=== PATIENT | male | born 1955 | race Caucasian/White ===

== ENCOUNTER 2017-10-25 18:22 | Inpatient (IN) | payer OTHER ==
[2017-10-25] VITALS (9 sets, daily range): BP systolic 102–164; BP diastolic 63–91; PULSE 102–145; RESP 20–36; TEMP 98.7; O2SAT 93–100
[~2017-10-25] VITALS: Ht 177.8 cm; Wt 68.3 kg
[~2017-10-25 18:22] MED LIST: CHLO5CAP3
[2017-10-25] MEDS ORDERED: SODIUM CHLORIDE 0.9% FLUSH 10 ML FLUSH IVF PRN (18:30)
[2017-10-25] MEDS ORDERED: methylPREDNISolone SOD SUCC 125 MG/2 ML VIAL IV PUSH ONE (18:30)
[2017-10-25] MEDS: RESP: ALBUTEROL 2.5 MG/IPRATROPIUM 0.5 MG NEB (SCH) INH ×4 (18:45→22:55)
[2017-10-25] MEDS ORDERED: METOPROLOL TARTRATE 5 MG/5 ML VIAL IV PUSH ONE ×2 (19:00→19:30)
--- NOTE | 2017-10-25 19:04 | RADRPT ---
EXAM DATE: 10/25/2017 6:51 PM EDT AGE/SEX: 62 years / Male INDICATIONS: Short of breath. CLINICAL DATA: This is the patient's initial encounter. Patient reports that signs and symptoms have been present for 1 day and indicates a pain score of 0/10. MEDICAL/SURGICAL HISTORY: Carcinoma, esophageal. . Infusaport. COMPARISON: No prior [place] exams available for comparison. FINDINGS: A single AP view of the chest demonstrates the lungs to be symmetrically aerated without evidence of mass, infiltrate or effusion. There is mild prominence of the interstitial markings in the lower aliya gs without focal infiltrates. The cardiomediastinal contours are unremarkable. Osseous structures ar e intact. Minpsd-y-Hfix catheter tip in the distal superior vena cava. CONCLUSION: 1. Mild bilateral lower lung interstitial prominence without focal infiltrate. 2. [id number] in good position. Electronically signed by: David Fuentes MD 10/25/2017 7:02 PM EDT
--- NOTE | 2017-10-25 19:20 | PD ---
Physical Exam Time Seen by Provider: 19:19 Narrative Accepted in transfer of care from Dr. Baumann GENERAL: Thin ill-appearing male on BiPAP speaking in complete sentences. SKIN: Warm and dry. HEAD: Normocephalic. EYES: No scleral icterus. No injection or drainage. NECK: Supple, trachea midline. No JVD or lymphadenopathy. CARDIOVASCULAR: Increased regular rate and rhythm without murmurs, gallops, or rubs. RESPIRATORY: Breath sounds equal bilaterally. No accessory muscle use. GASTROINTESTINAL: Abdomen soft, non-tender, nondistended. PEG tube in place. MUSCULOSKELETAL: No cyanosis, or edema. Data Data Last Documented VS Vital Signs Date Time Temp Pulse Resp B/P (MAP) Pulse Ox O2 Delivery O2 Flow Rate FiO2 10/25/17 21:22 96 BiPAP 10/25/17 21:15 50 10/25/17 20:35 4.00 10/25/17 20:30 104 20 126/72 (90) 10/25/17 18:25 98.7 Orders Orders Complete Blood Count With Diff (10/25/17 18:30) Comprehensive Metabolic Panel (10/25/17 18:30) B-Type Natriuretic Peptide (10/25/17 18:30) Act Partial Throm Time (Ptt) (10/25/17 18:30) Prothrombin Time / Inr (Pt) (10/25/17 18:30) Troponin I (10/25/17 18:30) Iv Access Insert/Monitor (10/25/17 18:30) Ecg Monitoring (10/25/17 18:30) Oximetry (10/25/17 18:30) Oxygen Administration (10/25/17 18:30) Chest, Single Ap (10/25/17 18:30) Sodium Chloride 0.9% Flush (Ns Flush) (10/25/17 18:30) Methylprednisolone So Succ Inj (Solumedr (10/25/17 18:30) Albuterol-Ipratropium Neb (Duoneb Neb) (10/25/17 18:30) Metoprolol Tartrate Inj (Lopressor Inj) (10/25/17 19:00) Adenosine Inj (Adenocard Inj) (10/25/17 19:30) Adenosine Inj (Adenocard Inj) (10/25/17 19:45) Blood Culture (10/25/17 19:47) Lactic Acid Sepsis Protocol (10/25/17 19:47) Cefepime Inj (Maxipime Inj) (10/25/17 20:00) Resp Bipap / Cpap Non Invas Vt (10/25/17 ) Ct Pulmonary Angiogram (10/25/17 ) Iohexol 350 Inj (Omnipaque 350 Inj) (10/25/17 21:06) Electrocardiogram (10/25/17 18:34) Albuterol-Ipratropium Neb (Duoneb Neb) (10/25/17 22:00) Admit Order (Ed Use Only) (10/25/17 ) Clinical Documentation Spec / Telemetry ERAN.Q8H (10/25/17 21:47) Diet Npo (10/26/17 Breakfast) Activity Bed Rest (10/25/17 21:47) Notify Dr: Other (10/25/17 21:47) Code Status (10/25/17 21:47) Labs Laboratory Tests Test 10/25/17 19:05 10/25/17 19:55 White Blood Count 19.3 TH/MM3 Red Blood Count 3.41 MIL/MM3 Hemoglobin 10.7 GM/DL Hematocrit 33.0 % Mean Corpuscular Volume 96.8 FL Mean Corpuscular Hemoglobin 31.2 PG Mean Corpuscular Hemoglobin Concent 32.2 % Red Cell Distribution Width 14.3 % Platelet Count 570 TH/MM3 Mean Platelet Volume 9.0 FL Neutrophils (%) (Auto) 77.7 % Lymphocytes (%) (Auto) 12.4 % Monocytes (%) (Auto) 8.2 % Eosinophils (%) (Auto) 1.0 % Basophils (%) (Auto) 0.7 % Neutrophils # (Auto) 15.0 TH/MM3 Lymphocytes # (Auto) 2.4 TH/MM3 Monocytes # (Auto) 1.6 TH/MM3 Eosinophils # (Auto) 0.2 TH/MM3 Basophils # (Auto) 0.1 TH/MM3 CBC Comment DIFF FINAL Differential Comment Prothrombin Time 10.9 SEC Prothromb Time International Ratio 1.1 RATIO Activated Partial Thromboplast Time 30.7 SEC Blood Urea Nitrogen 26 MG/DL Creatinine 1.13 MG/DL Random Glucose 118 MG/DL Total Protein 9.7 GM/DL Albumin 3.0 GM/DL Calcium Level 10.9 MG/DL Alkaline Phosphatase 129 U/L Aspartate Amino Transf (AST/SGOT) 20 U/L Alanine Aminotransferase (ALT/SGPT) 23 U/L Total Bilirubin 0.3 MG/DL Sodium Level 136 MEQ/L Potassium Level 4.5 MEQ/L Chloride Level 100 MEQ/L Carbon Dioxide Level 26.9 MEQ/L Anion Gap 9 MEQ/L Estimat Glomerular Filtration Rate 66 ML/MIN Troponin I LESS THAN 0.02 NG/ML B-Type Natriuretic Peptide 86 PG/ML Lactic Acid Level 1.4 mmol/L [facility] Medical Record Reviewed: Yes Supervised Visit with AJIT: No Interpretation(s) Last Impressions Chest X-Ray 10/25/17 1830 Signed Impressions: CONCLUSION: 1. Mild bilateral lower lung interstitial prominence without focal infiltrate. 2. Upjqeb-g-Qayi in good position. CT Angiography 10/25/17 0000 Signed Impressions: CONCLUSION: 1. No evidence of pulmonary embolism. 2. Large ill-defined soft tissue mass in the region of the esophagus with portia cent subcarinal adenopathy. This is of concern for esophageal carcinoma. 3. Extensive reticulonodular opacities in both lung bases which may be infecti ous or inflammatory. Metastatic disease is less likely but is difficult to excl ude. CBC & BMP Diagram 10/25/17 19:05 Total Protein 9.7 H, Albumin 3.0 L, Calcium Level 10.9 H, Alkaline Phosphatase 129 H, Aspartate Amino Transf (AST/SGOT) 20, Alanine Aminotransferase (ALT/SGPT ) 23, Total Bilirubin 0.3 Vital Signs Date Time Temp Pulse Resp B/P (MAP) Pulse Ox O2 Delivery O2 Flow Rate FiO2 10/25/17 21:22 96 BiPAP 10/25/17 21:15 93 50 10/25/17 20:45 91 BiPAP 10/25/17 20:35 95 Nasal Cannula 4.00 10/25/17 20:30 104 20 126/72 (90) 98 BiPAP 10/25/17 20:27 100 50 10/25/17 20:00 102 20 104/74 (84) 98 BiPAP 10/25/17 19:31 102 24 102/63 (76) 100 BiPAP 10/25/17 18:30 96 BiPAP 10/25/17 18:30 36 96 BiPAP 10/25/17 18:25 98.7 145 36 164/91 (115) 97 10/25/17 18:23 95 40 Differential Diagnosis Accepted in transfer of care from Dr. Baumann; please refer to her dictation Narrative Course Accepted in transfer of care from Dr. Baumann; for follow up of pending diagnostics and for admission; 62-year-old hospice patient with esophageal cancer presented in acute respiratory distress and tachycardia was noted by EMS to have rales receive Lasix 70 mg IV prior to arrival to the emergency department and Solu-Medrol with also administered upon arrival to the emergency department as well as Adenocard was administered for tachycardia 6 mg IV with repeat dose of 6 mg IV and due to persistent tachycardia patient received a one- time dose of metoprolol 5 mg IV with good rate control. Lab values are pending. Patient is a hospice patient but does request should he have further respiratory deterioration to undergo intubation. Patient not tolerating BiPAP well requesting to have device removed has been fairly stable on current setting taper down tolerating well transition to nasal cannula for short period with desaturation 85% on 4 L/min nasal cannula replaced on BiPAP with O2 sats increasing to 96%. Patient aware of plan for admission; patient has rescinded his DNR and does agree to intubation if necessary for ongoing management of respiratory status. CT pulmonary angiogram is negative for PE does show periesophageal soft tissue mass and subcarinal soft tissue changes in lymphadenopathy consistent with malignancy; reticular nodular densities bibasilarly concerning for infectious versus inflammatory etiology also to consider malignancy related. Hospice nurse at bedside and reports the patient has rescinded his DO NOT RESUSCITATE; patient states that should he need intubation for respiratory related issues he wants to be intubated and he wants to be a full code. Patient's case discussed with on-call medical recruiter Dr. Baker who is except the patient to his service Sepsis Criteria SIRS Criteria (2 or more): Heart rate over 90, RR > 20 or PaCO2 < 32, WBC > 38762, < 4000 or > 10% bands Physician Communication Physician Communication call placed to medical recruiter --discussed with Dr Baker --admit to ICU Diagnosis Primary Impression: Respiratory distress Additional Impressions: Pulmonary vascular congestion Esophageal carcinoma Admitting Information Admitting Physician Requests: Admit Suzanne Presley MD October 25, 2017 19:20
[2017-10-25] MEDS ORDERED: PRED20 PEG (19:21)
[2017-10-25] MEDS ORDERED: DEXT1LIQ15 PEG (19:21)
[2017-10-25] MEDS ORDERED: IPRASOL INH (19:21)
[2017-10-25] MEDS ORDERED: ACET325C PEG (19:21)
[2017-10-25] MEDS ORDERED: LORA1TAB12 PEG (19:21)
[2017-10-25] MEDS ORDERED: AMOX875T2 PEG (19:21)
[2017-10-25] MEDS ORDERED: SENN8.6T81 PEG (19:21)
[2017-10-25] MEDS ORDERED: MORP10S2 PO (19:29)
[2017-10-25] MEDS ORDERED: ADENOSINE IV SOLN 3 MG/ML 2 ML VIAL IV PUSH ONE ×2 (19:30→19:45)
--- NOTE | 2017-10-25 19:33 | PD ---
HPI Chief Complaint: Respiratory Distress Time Seen by Provider: 18:25 Travel History International Travel<30 days: No Contact w/Intl Traveler<30days: No Traveled to known affect area: No History of Present Illness HPI This is a 72-year-old male who presents to the emergency department with shortness of breath that got much worse today, constant, severe. He is unable to provide any history because he is in severe respiratory distress. A hospice nurse was on scene. Evidently the patient is on hospice for esophageal cancer. He received 30 mg of morphine earlier today. I was able to discuss with the patient that he would want mechanical ventilation if he were to deteriorate further. PFSH Past Medical History Cancer: Yes (ESOPHAGEAL) Seizures: Yes Social History Alcohol Use: Yes (OCC) Tobacco Use: No Substance Use: No Allergies-Medications (Allergen,Severity, Reaction): Coded Allergies: No Known Allergies (Unverified , 10/25/17) Reported Meds & Prescriptions Reported Meds & Active Scripts Active Reported Morphine Liq (Morphine Sulfate) 20 Mg/5 Ml Liq 15-20 Mg PO Q3HR Prednisone 20 Mg Tab 30 Mg PEG DAILY Lorazepam 1 Mg Tab 1 Mg PEG Q2HR PRN Lorazepam 1 Mg Tab 1 Mg PEG Q2HR PRN Amoxicillin-Clavulanate 875-125 mg Tab 875 Mg PEG BID not for use in CrCl <30 mL/minute Duoneb (Ipratropium-Albuterol Neb) 0.5-2.5 Mg/3 Ml Neb 1 Nebule INH Q4HR NEB Sennosides 8.6 Mg Tab 8.6 Mg PEG BID Delsym Cough Chest Congestion (Dextromethorphan-Guaifenesin Liq) 5-100 Mg/5 Ml Liq 10 Ml PEG Q4H PRN Acetaminophen 325 Mg Capsule 325 Mg PEG Q4HR Review of Systems ROS Limitations: Clinical Condition Physical Exam Narrative GENERAL: Cachectic, anxious in severe respiratory distress SKIN: Focused skin assessment warm and dry. HEAD: Atraumatic. Normocephalic. EYES: Pupils equal and round. No injection or drainage. ENT: Moist mucous membranes NECK: Trachea midline. CARDIOVASCULAR: Regular rate and rhythm. No murmur appreciated. RESPIRATORY: Tachypneic, using accessory muscles and tripoding, diffuse rales GASTROINTESTINAL: Abdomen soft, non-tender, nondistended. MUSCULOSKELETAL: No obvious deformities. NEUROLOGICAL: Awake and alert. No obvious cranial nerve deficits. Moving all extremities. PSYCHIATRIC: Appropriate mood and affect; insight and judgment normal. Data Data Last Documented VS Vital Signs Date Time Temp Pulse Resp B/P (MAP) Pulse Ox O2 Delivery O2 Flow Rate FiO2 10/25/17 19:31 102 24 102/63 (76) 100 BiPAP 10/25/17 18:25 98.7 10/25/17 18:23 40 Orders Orders Complete Blood Count With Diff (10/25/17 18:30) Comprehensive Metabolic Panel (10/25/17 18:30) B-Type Natriuretic Peptide (10/25/17 18:30) Act Partial Throm Time (Ptt) (10/25/17 18:30) Prothrombin Time / Inr (Pt) (10/25/17 18:30) Troponin I (10/25/17 18:30) Iv Access Insert/Monitor (10/25/17 18:30) Ecg Monitoring (10/25/17 18:30) Oximetry (10/25/17 18:30) Oxygen Administration (10/25/17 18:30) Chest, Single Ap (10/25/17 18:30) Sodium Chloride 0.9% Flush (Ns Flush) (10/25/17 18:30) Methylprednisolone So Succ Inj (Solumedr (10/25/17 18:30) Albuterol-Ipratropium Neb (Duoneb Neb) (10/25/17 18:30) Metoprolol Tartrate Inj (Lopressor Inj) (10/25/17 19:00) Adenosine Inj (Adenocard Inj) (10/25/17 19:30) Adenosine Inj (Adenocard Inj) (10/25/17 19:45) Labs Laboratory Tests Test 10/25/17 19:05 Prothrombin Time 10.9 SEC Prothromb Time International Ratio 1.1 RATIO Activated Partial Thromboplast Time 30.7 SEC MDM Medical Decision Making Medical Screen Exam Complete: Yes Emergency Medical Condition: Yes Interpretation(s) Tachycardia, hypertensive, tachypneic Differential Diagnosis Pneumonia, pulmonary embolism, pleural effusion, congestive heart failure, COPD exacerbation Narrative Course This is a 62-year-old male who presents to the emergency department with severe respiratory distress. He is on hospice for esophageal cancer, but had a crisis today. He was placed on a monitor and an IV was established. He was placed on BiPAP by [facility] and this was continued in the emergency department. He received 70 of Lasix from [facility]. Patient had rales in his physical exam is consistent with pulmonary edema. He was in a sustained narrow complex tachycardia at a rate of 140. He was given adenosine twice but did not improve. He was given 5 mg metoprolol and his heart rate slowed to a rate of 100. Patient appeared significantly improved on reassessment. He was signed out to Dr. Presley pending diagnostics and should be admitted for close monitoring. Critical Care Narrative Aggregate critical care time was 45 minutes. Time to perform other separately billable procedures was not included in the critical care time. My time did not include minutes spent treating any other patients simultaneously or on activities that did not directly contribute to the patient's treatment. The services I provided to this patient were to treat and/or prevent clinically significant deterioration that could result in: Disability, I provided critical care services requiring my management, as noted below: Chart data review, documentation time, medication orders and management, vital sign assessments/reviewing monitor data, ordering and reviewing lab tests, ordering and interpreting/reviewing x-rays and diagnostic studies, care of the patient and discussion of the patient with the admitting physicians. Mckayla Baumann MD October 25, 2017 19:33
[2017-10-25 19:34] LABS: INTERNATIONAL NORMALIZED RATIO 1.1 RATIO; PROTHROMBIN TIME - PATIENT 10.9 SEC (9.8-11.6)
[2017-10-25 19:40] LABS: BASOPHIL # 0.1 TH/MM3 (0-0.2); BASOPHIL % 0.7 % (0.0-2.0); EOSINOPHIL # 0.2 TH/MM3 (0-0.4); HEMOGLOBIN 10.7 GM/DL (13.0-17.0); LYMPH % 12.4 % (9.0-44.0); LYMPHOCYTE # 2.4 TH/MM3 (1.0-4.8); MEAN CELL VOLUME 96.8 FL (80.0-100.0); MEAN CORPUSCULAR HEMOGLOBIN 31.2 PG (27.0-34.0); MEAN CORPUSCULAR HGB CONC 32.2 % (32.0-36.0); MONO % 8.2 % (0.0-8.0); MONOCYTE # 1.6 TH/MM3 (0-0.9); NEUT % 77.7 % (16.0-70.0); PLATELET COUNT 570 TH/MM3 (150-450); RED BLOOD COUNT 3.41 MIL/MM3 (4.50-5.90); RED CELL DISTRIBUTION WIDTH 14.3 % (11.6-17.2); WHITE BLOOD COUNT 19.3 TH/MM3 (4.0-11.0)
[2017-10-25 19:50] LABS: AST (GOT) 20 U/L (15-37); BICARBONATE 26.9 MEQ/L (21.0-32.0); BLOOD UREA NITROGEN 26 MG/DL (7-18); CALCIUM 10.9 MG/DL (8.5-10.1); CHLORIDE 100 MEQ/L (98-107); CREATININE 1.13 MG/DL (0.60-1.30); GLOMERULAR FILTRATION RATE 66 ML/MIN (>89); GLUCOSE,RANDOM 118 MG/DL (74-106); SODIUM (NA) 136 MEQ/L (136-145)
[2017-10-25 19:51] LABS: ALT (GPT) 23 U/L (12-78)
[2017-10-25 19:55] LABS: ALKALINE PHOSPHATASE 129 U/L (45-117); TOTAL BILIRUBIN ADULT 0.3 MG/DL (0.2-1.0); TOTAL PROTEIN 9.7 GM/DL (6.4-8.2); TROPONIN I LESS THAN 0.02 NG/ML (0.02-0.05)
[2017-10-25] MEDS ORDERED: CEFEPIME INJ 2,000 MG in SODIUM CHLORIDE 0.9% INJ 100 ML IV ONE (20:00)
[2017-10-25] MEDS ORDERED: IOHEXOL 350 MG/ML 10 ML VIAL (for RAD DIAG) IVCONTRAST ONE (21:06)
--- NOTE | 2017-10-25 21:16 | RADRPT ---
EXAM DATE: 10/25/2017 9:07 PM EDT AGE/SEX: 62 years / Male INDICATIONS: Shortness of breath CLINICAL DATA: This is the patient's initial encounter. Patient reports that signs and symptoms have been present for 1 day and indicates a pain score of 0/10. MEDICAL/SURGICAL HISTORY: Carcinoma, esophageal. None. RADIATION DOSE: 7.21 CTDI (mGy) COMPARISON: No prior [place] exams available for comparison. TECHNIQUE: Volumetric scanning was performed using a multi-row detector CT scanner during bolus infu michael of 75 ml Omnipaque 350 (iohexol) nonionic water-soluble contrast as a single exam dose. The clara a was post processed with a variety of visualization algorithms including full volume maximum intensi ty projection and sliding thin slab reformation. Using automated exposure control and adjustment of the mA and/or kV according to patient size, radiation dose was kept as low as reasonably achievable t o obtain optimal diagnostic quality images. FINDINGS: Pulmonary Arteries: No filling defects are seen in the pulmonary arteries out to the subsegmental ve ssels. The left and right pulmonary arteries are normal in diameter. Lung: Diffuse reticulonodular opacities are present in both lung bases. Involves the lower lobes as well as the right middle lobe and lingula. There are multiple small scattered nodules in these region s measuring from less than 1 mm up to 3 to 4 mm in size. There is no focal consolidation. Effusion: None. Mediastinum: There is a large, ill-defined soft tissue mass centered in the region of the esophagus measuring up to 4.4 x 4.2 cm in diameter. The esophagus is dilated above this level and there is an a ir-fluid level. There is mass effect on the posterior trachea. There is adjacent subcarinal adenopath y with the largest paulie area measuring up to 2.6 cm. Other: The axilla is unremarkable. CONCLUSION: 1. No evidence of pulmonary embolism. 2. Large ill-defined soft tissue mass in the region of the esophagus with adjacent subcarinal adenop athy. This is of concern for esophageal carcinoma. 3. Extensive reticulonodular opacities in both lung bases which may be infectious or inflammatory. M etastatic disease is less likely but is difficult to exclude. Electronically signed by: Daquan Wood MD 10/25/2017 9:14 PM EDT
[2017-10-25] MEDS ORDERED: RESP: ALBUTEROL 2.5 MG/IPRATROPIUM 0.5 MG NEB (SCH) NEB ONE (22:00)
--- NOTE | 2017-10-25 22:21 | HHI.HP ---
HPI Service Critical Care Medicine Primary Care Physician Unknown Admission Diagnosis acute resp distress; pulmonary vasc congestion; esophageal CA Diagnosis: Travel History International Travel<30 Days: No Contact w/Intl Traveler <30 Da: No Traveled to Known Affected Are: No History of Present Illness 72-year-old male who presents with shortness of breath that got much worse today , constant, severe. He is unable to provide any history because he is in severe respiratory distress. A hospice nurse was on scene. Evidently the patient is on hospice for esophageal cancer. He received 30 mg of morphine earlier today. The CODE STATUS was discussed with the patient by ED attending, the patient rescinded his DNR orders as he would want mechanical ventilation if he were to deteriorate further. He was placed on the BiPAP with significant improvement in his oxygenation. Review of Systems ROS Unable to obtain patient in respiratory distress on BiPAP Past Family Social History Allergies: Coded Allergies: No Known Allergies (Unverified , 10/25/17) Past Medical History Cancer: Yes (ESOPHAGEAL) Seizures: Yes Past Surgical History Unable to obtain Reported Medications Reported Meds & Active Scripts Active Reported Morphine Liq (Morphine Sulfate) 20 Mg/5 Ml Liq 15-20 Mg PO Q3HR Prednisone 20 Mg Tab 30 Mg PEG DAILY Lorazepam 1 Mg Tab 1 Mg PEG Q2HR PRN Lorazepam 1 Mg Tab 1 Mg PEG Q2HR PRN Amoxicillin-Clavulanate 875-125 mg Tab 875 Mg PEG BID not for use in CrCl <30 mL/minute Duoneb (Ipratropium-Albuterol Neb) 0.5-2.5 Mg/3 Ml Neb 1 Nebule INH Q4HR NEB Sennosides 8.6 Mg Tab 8.6 Mg PEG BID Delsym Cough Chest Congestion (Dextromethorphan-Guaifenesin Liq) 5-100 Mg/5 Ml Liq 10 Ml PEG Q4H PRN Acetaminophen 325 Mg Capsule 325 Mg PEG Q4HR Active Ordered Medications Current Medications Medications (Trade) Dose Ordered Sig/Nadia Route PRN Reason Start Time Stop Time Status Last Admin Dose Admin Lorazepam (Ativan) 1 mg Q2HR PRN PEG ANXIETY 10/25/17 22:30 Lorazepam (Ativan) 1 mg Q2HR PRN PEG SEVERE ANXIETY OR AGITATION 10/25/17 22:30 Prednisone (Deltasone) 30 mg DAILY PEG 10/26/17 09:00 Morphine Sulfate (Roxanol Liq) 15 mg Q3HR PO 10/25/17 23:00 10/26/17 01:00 Miscellaneous (Pill Splitter) 1 ea UNSCH PRN OTHER SEE LABEL COMMENTS 10/25/17 22:30 Sodium Chloride 1,000 ml @ 124 mls/hr Q8H4M IV 10/25/17 22:23 10/25/17 23:18 Sodium Chloride (NS Flush) 2 ml UNSCH PRN IV FLUSH FLUSH AFTER USING IV ACCESS 10/25/17 22:30 Sodium Chloride (NS Flush) 2 ml BID IV FLUSH 10/26/17 09:00 Acetaminophen (Tylenol) 650 mg Q6H PRN PO PAIN 1-10 AND/OR FEVER >101F 10/25/17 22:30 Hydromorphone HCl (Dilaudid Pf Inj) 1 mg Q4H PRN IV PUSH PAIN SCALE 6 TO 10 10/25/17 22:30 Famotidine (Pepcid Inj) 20 mg Q12HR IV PUSH 10/26/17 09:00 Ondansetron HCl (Zofran Odt) 4 mg Q6H PRN PO NAUSEA OR VOMITING 10/25/17 22:30 Temazepam (Restoril) 15 mg HS PRN PO INSOMNIA 10/25/17 22:30 Albuterol/ Ipratropium (Duoneb Neb) 1 ampule Q4HR NEB INH 10/26/17 00:00 10/26/17 04:03 Albuterol/ Ipratropium (Duoneb Neb) 1 ampule Q2HR NEB PRN INH WHEEZING 10/25/17 22:30 Enoxaparin Sodium (Lovenox Inj) 40 mg Q24H SQ 10/25/17 23:00 10/25/17 23:18 Miscellaneous Information [place] [place] [facility] [place] 1 [id number] XX 10/25/17 22:30 Chlorhexidine Gluconate (Chlorhexidine 2% Cloth) 3 pack Taper DAILY@04 TOP 10/26/17 04:00 10/22/18 03:59 10/26/17 01:01 Chlorhexidine Gluconate (Chlorhexidine 2% Cloth) 3 pack UNSCH PRN TOP HYGIENIC CARE 10/25/17 22:30 Senna/Docusate Sodium (Bria-Colace) 1 tab BID PO 10/26/17 09:00 Magnesium Hydroxide (Milk Of Magnesia Liq) 30 ml Q12H PRN PO Mild constipation 10/25/17 22:30 Sennosides (Senokot) 17.2 mg Q12H PRN PO Moderate constipation 10/25/17 22:30 Bisacodyl (Dulcolax Supp) 10 mg DAILY PRN RECTAL SEVERE CONSITIPATION 10/25/17 22:30 Lactulose (Lactulose Liq) 30 ml DAILY PRN PO SEVERE CONSITIPATION 10/25/17 22:30 Piperacillin Sod/ Tazobactam Sod 100 ml @ 200 mls/hr Q6H IV 10/25/17 23:00 10/26/17 05:09 Azithromycin 500 mg/Sodium Chloride 250 ml @ 250 mls/hr Q24H IV 10/26/17 00:00 10/26/17 01:01 Pharmacy Profile Note 0 ml @ 0 mls/hr UNSCH OTHER 10/25/17 22:30 Guaifenesin/ Dextromethorphan (Robitussin Dm 200-20 Mg/10 ml Liq) 10 ml Q4H PRN PEG CHEST CONGESTION AND/OR COUGH 10/25/17 23:00 Family History Unable to obtain Social History Alcohol Use: Yes (OCC) Tobacco Use: No Substance Use: No Physical Exam Vital Signs Vital Signs Date Time Temp Pulse Resp B/P (MAP) Pulse Ox O2 Delivery O2 Flow Rate FiO2 10/25/17 21:22 96 BiPAP 10/25/17 21:15 93 50 10/25/17 20:45 91 BiPAP 10/25/17 20:35 95 Nasal Cannula 4.00 10/25/17 20:30 104 20 126/72 (90) 98 BiPAP 10/25/17 20:27 100 50 10/25/17 20:00 102 20 104/74 (84) 98 BiPAP 10/25/17 19:31 102 24 102/63 (76) 100 BiPAP 10/25/17 18:30 96 BiPAP 10/25/17 18:30 36 96 BiPAP 10/25/17 18:25 98.7 145 36 164/91 (115) 97 10/25/17 18:23 95 40 Physical Exam GENERAL: Cachectic, anxious in severe respiratory distress on facemask BiPAP SKIN: Focused skin assessment warm and dry. HEAD: Atraumatic. Normocephalic. EYES: Pupils equal and round. No injection or drainage. ENT: Moist mucous membranes NECK: Trachea midline. CARDIOVASCULAR: Regular rate and rhythm. No murmur appreciated. RESPIRATORY: Tachypneic, using accessory muscles and tripoding, diffuse rales GASTROINTESTINAL: Abdomen soft, non-tender, nondistended. MUSCULOSKELETAL: No obvious deformities. NEUROLOGICAL: Awake and alert. No obvious cranial nerve deficits. Moving all extremities. Laboratory Laboratory Tests Test 10/25/17 19:05 10/25/17 19:55 White Blood Count 19.3 Red Blood Count 3.41 Hemoglobin 10.7 Hematocrit 33.0 Mean Corpuscular Volume 96.8 Mean Corpuscular Hemoglobin 31.2 Mean Corpuscular Hemoglobin Concent 32.2 Red Cell Distribution Width 14.3 Platelet Count 570 Mean Platelet Volume 9.0 Neutrophils (%) (Auto) 77.7 Lymphocytes (%) (Auto) 12.4 Monocytes (%) (Auto) 8.2 Eosinophils (%) (Auto) 1.0 Basophils (%) (Auto) 0.7 Neutrophils # (Auto) 15.0 Lymphocytes # (Auto) 2.4 Monocytes # (Auto) 1.6 Eosinophils # (Auto) 0.2 Basophils # (Auto) 0.1 CBC Comment DIFF FINAL Differential Comment Prothrombin Time 10.9 Prothromb Time International Ratio 1.1 Activated Partial Thromboplast Time 30.7 Blood Urea Nitrogen 26 Creatinine 1.13 Random Glucose 118 Total Protein 9.7 Albumin 3.0 Calcium Level 10.9 Alkaline Phosphatase 129 Aspartate Amino Transf (AST/SGOT) 20 Alanine Aminotransferase (ALT/SGPT) 23 Total Bilirubin 0.3 Sodium Level 136 Potassium Level 4.5 Chloride Level 100 Carbon Dioxide Level 26.9 Anion Gap 9 Estimat Glomerular Filtration Rate 66 Troponin I LESS THAN 0.02 B-Type Natriuretic Peptide 86 Lactic Acid Level 1.4 Date/Time Source Procedure Growth Status 10/25/17 20:00 Blood Peripheral Aerobic Blood Culture Pending Received 10/25/17 20:00 Blood Peripheral Anaerobic Blood Culture Pending Received Result Diagram: 10/25/17 1905 10/25/17 1905 Imaging Last 24 hours Impressions Chest X-Ray 10/25/17 1830 Signed Impressions: CONCLUSION: 1. Mild bilateral lower lung interstitial prominence without focal infiltrate. 2. [id number] in good position. Septic Shock Reassessment Septic shock perfusion: reassessment completed Caprini VTE Risk Assessment Caprini VTE Risk Assessment: Mod/High Risk (score >= 2) Caprini Risk Assessment Model Point Value = 1 Point Value = 2 Point Value = 3 Point Value = 5 Age 41-60 Minor surgery BMI > 25 kg/m2 Swollen legs Varicose veins or History of unexplained or recurrent spontaneous Oral contraceptives or hormone replacement Sepsis (< 1 month) Serious lung disease, including pneumonia (< 1 month) Abnormal pulmonary function Acute myocardial infarction Congestive heart failure (< 1 month) History of inflammatory bowel disease Medical patient at bed rest Age 61-74 Arthroscopic surgery Major open surgery (> 45 min) Laparoscopic surgery (> 45 min) Malignancy Confined to bed (> 72 hours) Immobilizing plaster cast Central venous access Age >= 75 History of VTE Family history of VTE Factor V Leiden Prothrombin [id number] Lupus anticoagulant Anticardiolipin antibodies Elevated serum homocysteine Heparin-induced thrombocytopenia Other congenital or acquired thrombophilia Stroke (< 1 month) Elective arthroplasty Hip, pelvis, or leg fracture Acute spinal cord injury (< 1 month) Prophylaxis Regimen Total Risk Factor Score Risk Level Prophylaxis Regimen 0-1 Low Early ambulation 2 Moderate Order ONE of the following: *Sequential Compression Device (SCD) *Heparin 5000 units SQ BID 3-4 Higher Order ONE of the following medications: *Heparin 5000 units SQ TID *Enoxaparin/Lovenox 40 mg SQ daily (WT < 150 kg, CrCl > 30 mL/min) *Enoxaparin/Lovenox 30 mg SQ daily (WT < 150 kg, CrCl > 10-29 mL/min) *Enoxaparin/Lovenox 30 mg SQ BID (WT < 150 kg, CrCl > 30 mL/min) AND/OR *Sequential Compression Device (SCD) 5 or more Highest Order ONE of the following medications: *Heparin 5000 units SQ TID (Preferred with Epidurals) *Enoxaparin/Lovenox 40 mg SQ daily (WT < 150 kg, CrCl > 30 mL/min) *Enoxaparin/Lovenox 30 mg SQ daily (WT < 150 kg, CrCl > 10-29 mL/min) *Enoxaparin/Lovenox 30 mg SQ BID (WT < 150 kg, CrCl > 30 mL/min) AND *Sequential Compression Device (SCD) Assessment and Plan Assessment and Plan Respiratory failure -Facemask BiPAP as needed -Wean as tolerated -Empiric antibiotic -Blood cultures, sputum culture, urine antigen -DuoNeb scheduled and as needed -IV steroids Esophageal cancer -Palliative care consultation -Supportive care Dysphagia -Tube feeds via PEG Anemia -Monitor H&H -Transfuse for hemoglobin less than 7 Acute kidney injury -Aggressive IV fluid hydration -Monitor creatinine and electrolyte levels DVT GI prophylaxis -Erich's and SCDs -Lovenox -Pepcid Critical Care: The total critical care time was 35 minutes. Time to perform other separately billable procedures was not included in the critical care time. Niranjan Baker MD October 25, 2017 22:21
[2017-10-25] MEDS ORDERED: MAGNESIUM HYDROXIDE SUSP 30 ML CUP PO PRN (22:30)
[2017-10-25] MEDS ORDERED: SODIUM CHLORIDE 0.9% FLUSH 10 ML FLUSH IV FLUSH PRN (22:30)
[2017-10-25] MEDS ORDERED: PILL SPLITTER OTHER PRN (22:30)
[2017-10-25] MEDS ORDERED: SENNOSIDES 8.6 MG TAB PO PRN (22:30)
[2017-10-25] MEDS ORDERED: NURSING INFORMATION XX SCH (22:30)
[2017-10-25] MEDS ORDERED: LORazepam 1 MG TAB PEG PRN ×2 (22:30)
[2017-10-25] MEDS ORDERED: Vancomycin Consult Pharmacy 1 EA OTHER SCH (22:30)
[2017-10-25] MEDS ORDERED: ACETAMINOPHEN 325 MG TAB PO PRN (22:30)
[2017-10-25] MEDS ORDERED: DEXTROMETHORPHAN GUAIFENESIN PEG PRN (22:30)
[2017-10-25] MEDS ORDERED: ONDANSETRON ODT 4 MG TAB PO PRN (22:30)
[2017-10-25] MEDS ORDERED: CHLORHEXIDINE GLUCONATE 2 % 1 PACK (2 CLOTHS) TOP PRN (22:30)
[2017-10-25] MEDS ORDERED: LACTULOSE SYRUP 20 GM/30 ML CUP PO PRN (22:30)
[2017-10-25] MEDS ORDERED: HYDROmorphone HCL PF 2 MG/ML VIAL IV PUSH PRN (22:30)
[2017-10-25] MEDS ORDERED: TEMAZEPAM 15 MG CAP PO PRN (22:30)
[2017-10-25] MEDS ORDERED: RESP: ALBUTEROL 2.5 MG/IPRATROPIUM 0.5 MG NEB (PRN) INH (22:30)
[2017-10-25] MEDS ORDERED: BISACODYL 10 MG SUPP RECTAL PRN (22:30)
[2017-10-25] MEDS ORDERED: ENOXAPARIN SODIUM 40 MG/0.4 ML SYRINGE SQ SCH (23:00)
[2017-10-25] MEDS ORDERED: guaiFENesin/DEXTROMETHORPHAN 200 MG/20 MG/10 ML CUP PEG PRN (23:00)
[2017-10-25] MEDS: SODIUM CHLOR 0.9% 1000 ML INJ 1,000 ML IV SCH (23:18)
[2017-10-25] MEDS: PIPERACIL-TAZO 4.5 GM PREMIX 100 ML IV SCH (23:18)
[2017-10-26] VITALS (27 sets, daily range): BP systolic 80–144; BP diastolic 50–82; PULSE 93–114; RESP 11–26; TEMP 97.5–98.8; O2SAT 91–100
[2017-10-26] MEDS: MORPHINE SULFATE ORAL SOLN 10 MG/0.5 ML SYRINGE PO SCH ×4 (01:00→08:46)
[2017-10-26] MEDS ORDERED: VANCOMYCIN 1,500 MG/NS 500 ML IV ONE ×2 (01:00)
[2017-10-26] MEDS: CHLORHEXIDINE GLUCONATE 2 % 1 PACK (2 CLOTHS) TOP SCH (01:01)
[2017-10-26] MEDS: AZITHROMYCIN INJ 500 MG in SODIUM CHLOR 0.9% 250 ML INJ 250 ML IV SCH ×2 (01:01→23:57)
[2017-10-26 02:10] LABS: ALBUMIN 2.7 GM/DL (3.4-5.0); ALKALINE PHOSPHATASE 108 U/L (45-117); ALT (GPT) 20 U/L (12-78); AST (GOT) 14 U/L (15-37); BLOOD UREA NITROGEN 28 MG/DL (7-18); CALCIUM 9.5 MG/DL (8.5-10.1); CHLORIDE 101 MEQ/L (98-107); GLOMERULAR FILTRATION RATE 62 ML/MIN (>89); GLUCOSE,RANDOM 193 MG/DL (74-106); MAGNESIUM 1.9 MG/DL (1.5-2.5); PHOSPHORUS 3.5 MG/DL (2.5-4.9); SODIUM (NA) 138 MEQ/L (136-145); TOTAL BILIRUBIN ADULT 0.3 MG/DL (0.2-1.0); TOTAL PROTEIN 8.6 GM/DL (6.4-8.2); TROPONIN I LESS THAN 0.02 NG/ML (0.02-0.05)
[2017-10-26] MEDS: RESP: ALBUTEROL 2.5 MG/IPRATROPIUM 0.5 MG NEB (SCH) INH ×6 (04:03→23:21)
[2017-10-26 04:28] LABS: AUTOMATED NEUTROPHIL # 13.6 TH/MM3 (1.8-7.7); BASOPHIL % 0.1 % (0.0-2.0); HEMATOCRIT 26.3 % (39.0-51.0); HEMOGLOBIN 8.4 GM/DL (13.0-17.0); LYMPH % 3.3 % (9.0-44.0); LYMPHOCYTE # 0.5 TH/MM3 (1.0-4.8); MEAN CELL VOLUME 96.7 FL (80.0-100.0); MEAN PLATELET VOLUME 8.3 FL (7.0-11.0); MONO % 1.8 % (0.0-8.0); MONOCYTE # 0.3 TH/MM3 (0-0.9); NEUT % 94.8 % (16.0-70.0); PLATELET COUNT 385 TH/MM3 (150-450); RED BLOOD COUNT 2.72 MIL/MM3 (4.50-5.90); RED CELL DISTRIBUTION WIDTH 14.1 % (11.6-17.2); WHITE BLOOD COUNT 14.3 TH/MM3 (4.0-11.0)
[2017-10-26 04:40] LABS: INTERNATIONAL NORMALIZED RATIO 1.1 RATIO; PROTHROMBIN TIME - PATIENT 11.4 SEC (9.8-11.6)
[2017-10-26] MEDS: PIPERACIL-TAZO 4.5 GM PREMIX 100 ML IV SCH ×4 (05:09→23:08)
[2017-10-26] MEDS ORDERED: SODIUM CHLOR 0.9% 1000 ML INJ 1,000 ML IV ONE ×2 (06:00)
--- NOTE | 2017-10-26 06:16 | RADRPT ---
EXAM DATE: 10/26/2017 6:10 AM EDT AGE/SEX: 62 years / Male INDICATIONS: Shortness of breath. CLINICAL DATA: This is the patient's subsequent encounter. Patient reports that signs and symptoms h ave been present for 2 days and indicates a pain score of 0/10. MEDICAL/SURGICAL HISTORY: Carcinoma, esophageal. Infusaport. . Infusaport. COMPARISON: C, CHEST SINGLE AP, 10/25/2017. . FINDINGS: There is a CT compatible [id number] in place from the right internal jugular approach. The heart s ize is normal. There is mild interstitial prominence at the lung bases. This appears to be improving. Effusions are not seen. CONCLUSION: Persistent but improving interstitial prominence at the bases. Electronically signed by: Joshua Montana MD 10/26/2017 6:15 AM EDT
[2017-10-26] MEDS: SODIUM CHLOR 0.9% 1000 ML INJ 1,000 ML IV SCH (06:37)
[2017-10-26] MEDS: predniSONE 20 MG TAB PEG SCH (08:44)
[2017-10-26] MEDS: SODIUM CHLORIDE 0.9% FLUSH 10 ML FLUSH IV FLUSH SCH ×2 (08:46→19:24)
[2017-10-26] MEDS: DOCUSATE SODIUM 50 MG/SENNA 8.6 MG TAB PO SCH ×2 (08:46→19:24)
[2017-10-26] MEDS ORDERED: FAMOTIDINE 20 MG/2 ML VIAL IV PUSH SCH (09:00)
[2017-10-26 11:19] LABS: HEMATOCRIT 26.6 % (39.0-51.0); HEMOGLOBIN 8.5 GM/DL (13.0-17.0)
--- NOTE | 2017-10-26 11:19 | PD.CONS ---
Consult Service Palliative Care Consult Requested By Dr. Baker. Primary Care Physician The OR clinic. Reason for Consultation a. To assist with evaluation and management of symptoms including: Dyspnea, dysphagia, debility. b. To assist medical decision maker(s) with: better understanding of current medical conditions; weighing benefits/burdens of medical treatment options; making medical treatment decisions. . HPI History of Present Illness Mr. Centeno is a 62-year-old male with a medical history significant for esophageal carcinoma, dysphagia, progressive weight loss and debility. Patient presented to ED via EMS on 10/25/17 endorsing dyspnea at rest and on minimal exertion. He was found on acute respiratory distress and tachycardia. Was given Lasix on Solu-Medrol upon arrival to emergency room. Patient was given 2 doses of Adenosine for persistent tachycardia as well as 1 dose of Metroprolol. Laboratory workup revealing WBC 19.3, Hgb 10.7, platelet count 570. CTA negative for PE, revealed large ill-defined soft tissue mass in the region of the esophagus with adjacent adenopathy, extensive opacities in both lungs. Chest CT revealing mild bilateral lower lung interstitial prominence without focal infiltrate. Patient rescinded DNR status in favor of full code. He was placed on BiPAP and transferred to medical ICU for further monitoring and management. Palliative care consulted for full clarifications of goals of care. 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 Patient reports that he underwent radiation treatment. Patient under [facility] since 10/19/17. Hospice medical records reviewed. Esophagogastroduodenoscopy secondary to mass on PET scan and UGI esophagus and dysphagia. Results revealed large ulcerated tumor which occupied 75-99% circumference of the esophagus, 27 cm from the entry site. It was causing infiltrative narrowing and severe obstruction. The obstructed area was not traversed with regular and peads upper endoscope the tumor bled on contact and showed no bleeding stigmata. Appearances were adenocarcinoma multiple, cold forceps biopsies taken. Patient with persistent dysphagia, his first G-tube was placed on May 2017, currently reports being on his third tube. He is unable to eat or drink orally, gives himself boluses feedings of Isosource 1.5 six cans daily. Patient was recently hospitalized at [facility] from to 10/11/17 secondary to pneumonia. As per hospice medical records, CT scan of you chest showed the changes of pneumonia but also showed worsening esophageal cancer that has eroded into one of the bronchial tubes likely leading to his pneumonia. He was evaluated by oncology who did not recommend any chemotherapy during that admission, however, recommended to follow-up as outpatient for further discussion. Hospice was recommended at that time, but declined by patient. He was discharged home with a 7 day course of Augmentin. Since enrollment into [facility] on 10/19/17, patient has been endorsing productive cough with dyspnea on exertion. On 10/25/17, focus visit secondary to worsening respiratory distress for the past 2 days. Patient was offered transfer to hospice care center for symptom management, declined in favor of transfer to hospital for aggressive management. Patient seen in medical ICU. Alert and oriented x self, place and situation. Speech limited secondary to BiPAP, but able to communicate. Patient endorsing shortness of breath at rest, denies pain, nausea/vomiting or abdominal discomfort. Remains on BiPAP, 45% FiO2. Stable hemodynamically, afebrile. Chest x-ray today revealing persistent but improving interstitial prominence at the bases. In this first visit, reviewed the role of palliative care in advanced illness in regards to symptom management as well as support surrounding goals of care and advance care planning. Patient not very receptive to my visit, but allowed me to complete consultation. Patient anxious , irritable at times. Limited review of past medical history, psychosocial history, events leading to this hospitalization secondary to dyspnea. Reviewed clinical course and current medical management. Share concerns of patient's acute respiratory distress in the setting of esophageal cancer with large mass. Patient verbalizing "I am not ready to ", patient reiterated aggressive goals to include full code. Discussed overall poor prognosis in the setting of esophageal cancer, dysphagia, weight loss and physical deconditioning. Patient reports that he is to follow-up with OR oncologist to discuss the possibility of chemotherapy, requesting to revoke hospice services. Discussed case with [facility]. Patient reports that he has an oncology evaluation through the OR by the end of this month. He is seeking aggressive management to include chemotherapy. Patient requesting to revoke hospice services at this time. Case discussed with Dr. Banegas, hospice rn Do, hospice rn Lizabeth Sharma and ICU bedside KEKE Christopher. TC to sister Gaby , no answer, unable to leave message. TC to sister Peter , left message in VM. 13:05. Case discussed with Dr. Banegas. Patient seen again, he reiterated changing code status back to DNR/DNI. Comfort-directed goals and requesting transfer to hospice care [facility] tomorrow 10/27 in AM. Case discussed with hospice rn Do. Tc to pt's sister Peter. Left another voicemail. . Function/Cognitive Trajectory Patient ambulating without assistive device, poor activity tolerance secondary to profound dyspnea. Independent with all ADLs. No bladder incontinence. No cognitive decline reported or observed. . Review of Systems ROS Limitations: Clinical Condition, Uncooperative Constitutional: COMPLAINS OF: Weight loss, Change in appetite, DENIES: Fever, Weight gain Endocrine: DENIES: Heat/cold intolerance Eyes: DENIES: Eye inflammation, Eye pain Ears, nose, mouth, throat: DENIES: Hearing loss, Nasal discharge, Running Nose , Epistaxis Respiratory: COMPLAINS OF: Cough, Wheezing, Sputum production, Shortness of breath Cardiovascular: COMPLAINS OF: Dyspnea on Exertion, DENIES: Chest pain, Lower Extremity Edema Gastrointestinal: COMPLAINS OF: Diarrhea, Difficulty Swallowing, Anorexia, DENIES: Abdominal pain, Black stools, Bloody stools, Nausea, Vomiting Genitourinary: DENIES: Urinary incontinence, Hematuria Musculoskeletal: DENIES: Muscle aches, Stiffness, Decreased range of motion Integumentary: DENIES: Abnormal pigmentation Hematologic/Lymphatics: DENIES: Bruising Immunologic/Allergic: DENIES: Eczema Neurologic: DENIES: Abnormal gait, Headache, Localized weakness, Seizures, Tremor Psychiatric: COMPLAINS OF: Anxiety, Depression, Agitation Past Family Social History Coded Allergies: No Known Allergies (Unverified , 10/25/17) Past Medical History Esophageal carcinoma Dysphagia Progressive weight loss Alcoholism . Past Surgical History Esophageal mass biopsy. MediPort placement. . Reported Medications Morphine Liq (Morphine Sulfate) 20 Mg/5 Ml Liq 15-20 Mg PO Q3HR Prednisone 20 Mg Tab 30 Mg PEG DAILY Lorazepam 1 Mg Tab 1 Mg PEG Q2HR PRN Lorazepam 1 Mg Tab 1 Mg PEG Q2HR PRN Amoxicillin-Clavulanate 875-125 mg Tab 875 Mg PEG BID Duoneb (Ipratropium-Albuterol Neb) 0.5-2.5 Mg/3 Ml Neb 1 Nebule INH Q4HR NEB Sennosides 8.6 Mg Tab 8.6 Mg PEG BID Delsym Cough Chest Congestion (Dextromethorphan-Guaifenesin Liq) 5-100 Mg/5 Ml Liq 10 Ml PEG Q4H PRN Acetaminophen 325 Mg Capsule 325 Mg PEG Q4HR . Current Medications Medications (Trade) Dose Ordered Sig/Nadia Route Start Time Stop Time Status Last Admin (Ativan) 1 mg Q2HR PRN PEG 10/25/17 22:30 (Ativan) 1 mg Q2HR PRN PEG 10/25/17 22:30 (Deltasone) 30 mg DAILY PEG 10/26/17 09:00 10/26/17 08:44 (Roxanol Liq) 15 mg Q3HR PO 10/25/17 23:00 10/26/17 08:46 (Pill Splitter) 1 ea UNSCH PRN OTHER 10/25/17 22:30 Sodium Chloride 1,000 ml @ 124 mls/hr Q8H4M IV 10/25/17 22:23 10/26/17 06:37 (NS Flush) 2 ml UNSCH PRN IV FLUSH 10/25/17 22:30 (NS Flush) 2 ml BID IV FLUSH 10/26/17 09:00 10/26/17 08:46 (Tylenol) 650 mg Q6H PRN PO 10/25/17 22:30 (Dilaudid Pf Inj) 1 mg Q4H PRN IV PUSH 10/25/17 22:30 (Pepcid Inj) 20 mg Q12HR IV PUSH 10/26/17 09:00 10/26/17 08:45 (Zofran Odt) 4 mg Q6H PRN PO 10/25/17 22:30 (Restoril) 15 mg HS PRN PO 10/25/17 22:30 (Duoneb Neb) 1 ampule Q4HR NEB INH 10/26/17 00:00 10/26/17 08:10 (Duoneb Neb) 1 ampule Q2HR NEB PRN INH 10/25/17 22:30 (Lovenox Inj) 40 mg Q24H SQ 10/25/17 23:00 10/25/17 23:18 (Misc Nursing Information) 1 Q361D XX 10/25/17 22:30 (Chlorhexidine 2% Cloth) 3 pack Taper DAILY@04 TOP 10/26/17 04:00 10/22/18 03:59 10/26/17 01:01 (Chlorhexidine 2% Cloth) 3 pack UNSCH PRN TOP 10/25/17 22:30 (Bria-Colace) 1 tab BID PO 10/26/17 09:00 (Milk Of Magnesia Liq) 30 ml Q12H PRN PO 10/25/17 22:30 (Senokot) 17.2 mg Q12H PRN PO 10/25/17 22:30 (Dulcolax Supp) 10 mg DAILY PRN RECTAL 10/25/17 22:30 (Lactulose Liq) 30 ml DAILY PRN PO 10/25/17 22:30 Piperacillin Sod/ Tazobactam Sod 100 ml @ 200 mls/hr Q6H IV 10/25/17 23:00 10/26/17 05:09 Azithromycin 500 mg/Sodium Chloride 250 ml @ 250 mls/hr Q24H IV 10/26/17 00:00 10/26/17 01:01 Pharmacy Profile Note 0 ml @ 0 mls/hr UNSCH OTHER 10/25/17 22:30 (Robitussin Dm 200-20 Mg/10 ml Liq) 10 ml Q4H PRN PEG 10/25/17 23:00 Family History Patient refused providing information. He reports having one son who is alive and healthy. . Substance Use Tobacco: Patient declined to provide information. Alcohol: History of alcoholism as per prior ED visit. Prescription med abuse: Patient declined to provide information. Illicits: Patient declined to provide information. . Psychosocial History Patient is single, has 1 adult son. of the [place], has 2 sisters who reside locally. He resides independently in a boat. Patient declined to provide any additional information. . Spiritual/Cultural Factors No yarsani affiliations. . Living Will: Copy in medical record Health Care Surrogate: Copy in medical record Date completed: 05/10/2017. . Health Care Surrogate(s): Patient designated sister Gaby Chávez as healthcare surrogate decision maker, alternate his sister Peter Sterling. . Documented care wishes: Living will with standard verbiage. Copy in chart. . Today's verbally stated goals: Comfort-directed goals. . Ethical and Legal Issues No ethical legal issues identified. . Physical Exam Vital Signs Date Time Temp Pulse Resp B/P (MAP) Pulse Ox O2 Delivery O2 Flow Rate FiO2 10/26/17 08:07 100 10/26/17 08:00 98.0 94 12 114/65 (81) 100 10/26/17 08:00 94 10/26/17 07:00 100 Bi-Pap 45 10/26/17 06:00 97 11 99/59 (72) 98 10/26/17 06:00 97 10/26/17 05:14 96 Bi-Pap 45 10/26/17 05:00 101 15 103/59 (74) 91 10/26/17 04:04 100 35 10/26/17 04:00 94 Bi-Pap 35 10/26/17 04:00 93 10/26/17 04:00 98.0 93 11 80/50 (60) 99 10/26/17 03:00 93 16 92/67 (75) 99 10/26/17 02:00 100 10/26/17 02:00 97 14 86/55 (65) 100 10/26/17 01:00 109 16 101/62 (75) 100 10/26/17 00:30 97.5 114 26 120/73 (89) 99 10/26/17 00:30 99 Bi-Pap 50 10/26/17 00:22 99 50 10/26/17 00:14 10/26/17 00:00 96 6.00 10/25/17 21:22 96 BiPAP 10/25/17 21:15 93 50 10/25/17 20:45 91 BiPAP 10/25/17 20:35 95 Nasal Cannula 4.00 10/25/17 20:30 104 20 126/72 (90) 98 BiPAP 10/25/17 20:27 100 50 10/25/17 20:00 102 20 104/74 (84) 98 BiPAP 10/25/17 19:31 102 24 102/63 (76) 100 BiPAP 10/25/17 18:30 96 BiPAP 10/25/17 18:30 36 96 BiPAP 10/25/17 18:25 98.7 145 36 164/91 (115) 97 10/25/17 18:23 95 40 Exam CONSTITUTIONAL/GENERAL: This is a thin male sitting up in bed in moderate distress secondary to increased work of breathing. TUBES/LINES/DRAINS: Bipap mask, PIV, SCDs. SKIN: No jaundice, rashes, or lesions. No wounds seen anteriorly. Skin temperature appropriate. Not diaphoretic. HEAD: Atraumatic. Normocephalic. EYES: Pupils equal and round and reactive. Extraocular motions intact. No scleral icterus. No injection or drainage. ENT: Hearing grossly normal. Nose without bleeding or purulent drainage. Dry lips. NECK: Trachea midline. Supple, nontender. CARDIOVASCULAR: Regular rate and rhythm. Peripheral pulses symmetric. RESPIRATORY/CHEST: Symmetric, increased work of breathing. Inspiratory and expiratory wheezes while on BiPAP. GASTROINTESTINAL: Abdomen soft, non-tender, nondistended. Bowel sounds present. PEG tube to left upper quadrant. GENITOURINARY: Without palpable bladder distension. MUSCULOSKELETAL: Extremities without clubbing, cyanosis, or edema. No mottling or clubbing. NEUROLOGICAL: Awake and alert. Motor and sensory grossly within normal limits. Follows commands. Moves all extremities. PSYCHIATRIC: Anxious, irritable. . Diagnostic Tests Laboratory Laboratory Tests Test 10/25/17 19:05 10/25/17 19:55 10/26/17 01:26 10/26/17 03:36 White Blood Count 19.3 TH/MM3 (4.0-11.0) 14.3 TH/MM3 (4.0-11.0) Red Blood Count 3.41 MIL/MM3 (4.50-5.90) 2.72 MIL/MM3 (4.50-5.90) Hemoglobin 10.7 GM/DL (13.0-17.0) 8.4 GM/DL (13.0-17.0) Hematocrit 33.0 % (39.0-51.0) 26.3 % (39.0-51.0) Mean Corpuscular Volume 96.8 FL (80.0-100.0) 96.7 FL (80.0-100.0) Mean Corpuscular Hemoglobin 31.2 PG (27.0-34.0) 31.0 PG (27.0-34.0) Mean Corpuscular Hemoglobin Concent 32.2 % (32.0-36.0) 32.0 % (32.0-36.0) Red Cell Distribution Width 14.3 % (11.6-17.2) 14.1 % (11.6-17.2) Platelet Count 570 TH/MM3 (150-450) 385 TH/MM3 (150-450) Mean Platelet Volume 9.0 FL (7.0-11.0) 8.3 FL (7.0-11.0) Neutrophils (%) (Auto) 77.7 % (16.0-70.0) 94.8 % (16.0-70.0) Lymphocytes (%) (Auto) 12.4 % (9.0-44.0) 3.3 % (9.0-44.0) Monocytes (%) (Auto) 8.2 % (0.0-8.0) 1.8 % (0.0-8.0) Eosinophils (%) (Auto) 1.0 % (0.0-4.0) 0.0 % (0.0-4.0) Basophils (%) (Auto) 0.7 % (0.0-2.0) 0.1 % (0.0-2.0) Neutrophils # (Auto) 15.0 TH/MM3 (1.8-7.7) 13.6 TH/MM3 (1.8-7.7) Lymphocytes # (Auto) 2.4 TH/MM3 (1.0-4.8) 0.5 TH/MM3 (1.0-4.8) Monocytes # (Auto) 1.6 TH/MM3 (0-0.9) 0.3 TH/MM3 (0-0.9) Eosinophils # (Auto) 0.2 TH/MM3 (0-0.4) 0.0 TH/MM3 (0-0.4) Basophils # (Auto) 0.1 TH/MM3 (0-0.2) 0.0 TH/MM3 (0-0.2) CBC Comment DIFF FINAL DIFF FINAL Differential Comment Prothrombin Time 10.9 SEC (9.8-11.6) 11.4 SEC (9.8-11.6) Prothromb Time International Ratio 1.1 RATIO 1.1 RATIO Activated Partial Thromboplast Time 30.7 SEC (24.3-30.1) 35.7 SEC (24.3-30.1) Blood Urea Nitrogen 26 MG/DL (7-18) 28 MG/DL (7-18) Creatinine 1.13 MG/DL (0.60-1.30) 1.20 MG/DL (0.60-1.30) Random Glucose 118 MG/DL (74-106) 193 MG/DL (74-106) Total Protein 9.7 GM/DL (6.4-8.2) 8.6 GM/DL (6.4-8.2) Albumin 3.0 GM/DL (3.4-5.0) 2.7 GM/DL (3.4-5.0) Calcium Level 10.9 MG/DL (8.5-10.1) 9.5 MG/DL (8.5-10.1) Alkaline Phosphatase 129 U/L (45-117) 108 U/L (45-117) Aspartate Amino Transf (AST/SGOT) 20 U/L (15-37) 14 U/L (15-37) Alanine Aminotransferase (ALT/SGPT) 23 U/L (12-78) 20 U/L (12-78) Total Bilirubin 0.3 MG/DL (0.2-1.0) 0.3 MG/DL (0.2-1.0) Sodium Level 136 MEQ/L (136-145) 138 MEQ/L (136-145) Potassium Level 4.5 MEQ/L (3.5-5.1) 4.2 MEQ/L (3.5-5.1) Chloride Level 100 MEQ/L (98-107) 101 MEQ/L (98-107) Carbon Dioxide Level 26.9 MEQ/L (21.0-32.0) 23.0 MEQ/L (21.0-32.0) Anion Gap 9 MEQ/L (5-15) 14 MEQ/L (5-15) Estimat Glomerular Filtration Rate 66 ML/MIN (>89) 62 ML/MIN (>89) Troponin I LESS THAN 0.02 NG/ML LESS THAN 0.02 NG/ML B-Type Natriuretic Peptide 86 PG/ML (0-100) Lactic Acid Level 1.4 mmol/L (0.4-2.0) 2.4 mmol/L (0.4-2.0) Phosphorus Level 3.5 MG/DL (2.5-4.9) Magnesium Level 1.9 MG/DL (1.5-2.5) Result Diagram: 10/26/17 0336 10/26/17 0126 Microbiology Microbiology Date/Time Source Procedure Growth Status 10/25/17 20:00 Blood Peripheral Aerobic Blood Culture Pending Received 10/25/17 20:00 Blood Peripheral Anaerobic Blood Culture Pending Received 10/25/17 19:50 Blood Peripheral Aerobic Blood Culture Pending Received 10/25/17 19:50 Blood Peripheral Anaerobic Blood Culture Pending Received 10/26/17 01:00 Urine Random Urine Legionella Antigen - Final PRESUMPTIVE NEGATIVE FOR LEGIONELLA P... Complete 10/26/17 01:00 Urine Random Urine Streptococcus pneumoniae Antigen (M - Final PRESUMPTIVE NEGATIVE FOR STREPTOCOCCU... Complete 10/26/17 01:00 Urine Random Urine Urine Culture Pending Received Imaging Last Impressions Chest X-Ray 10/26/17 0000 Signed Impressions: CONCLUSION: Persistent but improving interstitial prominence at the bases. CT Angiography 10/25/17 0000 Signed Impressions: CONCLUSION: 1. No evidence of pulmonary embolism. 2. Large ill-defined soft tissue mass in the region of the esophagus with portia cent subcarinal adenopathy. This is of concern for esophageal carcinoma. 3. Extensive reticulonodular opacities in both lung bases which may be infecti ous or inflammatory. Metastatic disease is less likely but is difficult to excl ude. Patient/Family Conference Present at Family Conference: Patient. Family Conference Time (mins): 33 Family Conference Location: Bedside Issues Discussed: * Palliative care role, purpose, approach * Additional medical, psychosocial, and spiritual history * Patients general health, functional status, and cognitive changes in the months leading up to the current hospitalization * Patient/family understanding of the current medical problems * Patient/family understanding of prognosis * Patients goals of care as best understood from advance directives and/or conversations and/or values * Current medical treatment options and benefits/burdens of those options * Questions answered to the best of my ability * Palliative care contact information provided * Risks, benefits and limitations of CPR, intubation and mechanical ventilation in the setting of esophageal cancer * Hospice philosophy . Assessment and Plan Disease Oriented Problem List: (1) Esophageal carcinoma (2) Respiratory failure (3) Pulmonary vascular congestion (4) Dysphagia (5) Anemia (6) Acute kidney injury (7) Weight loss (8) Physical deconditioning Symptom Scale: (1) Dyspnea 0-10 Scale: 8 (2) Anxiety 0-10 Scale: 8 (3) Dysphagia 0-10 Scale: 10 (4) Debility 0-10 Scale: Unable to quantify Pertinent Non-Medical Issues Psychosocial: Patient is single, has 1 adult son. [place] of the [place], has 2 sisters who reside locally. He resides independently in a boat. Patient declined to provide any additional information. Spiritual: No yarsani affiliation. Legal: Advance directives completed. Ethical issues impacting care: No ethical issues identified. . Important Contacts Healthcare surrogate/sister Gaby Chávez Alternate healthcare surrogate/sister peter Hubbard . Prognosis Mr. Centeno is a 62-year-old male with a medical history significant for esophageal carcinoma, dysphagia, progressive weight loss and debility. Patient originally diagnosed with esophageal cancer in 2017, status post radiation therapy. Recent hospitalization secondary to pneumonia. He was evaluated at that time by oncology and was deemed not a candidate secondary to overall physical deconditioning. Overall prognosis appears poor given the above, he remains at a very high risk for further complications, continued decline and . . Code Status: No Code Plan * CODE STATUS: DNR/DNI. Signed community DNR in chart. 13:05. patient reiterated DNR code. * HEALTHCARE DECISION-MAKING: Patient participated in medical decision making. Appears to have a fair understanding of his clinical condition and prognosis. Advanced directives completed, designated his sister Gaby Chávez as surrogate decision maker, alternate surrogate his sister Peter Sterling. * GOALS OF CARE: 15:05. Patient electing comfort-directed care with hospice but requesting cont inpatient status at [facility] for today, transfer to hospice care [facility] tomorrow Sat 526 in AM. Patient requesting comfort medications for symptom management of dyspnea and anxiety. * SYMPTOMS: =Dyspnea, secondary to burden of disease, pulmonary congestion. Recently treated for pneumonia. Currently on azithromycin. Duonebs every 4 hours and Morphine 15mg every 3 hours, remains on BiPAP. Bread Icer following. = Dysphagia: Secondary to large esophageal tumor, G tube in place. = Anxiety: Exacerbated by shortness of breath. Lorazepam available as needed. = Debility: Progressive. * Case discussed with Dr. Banegas, manager access Lizabeth Vasquez and bedside RN Ashwin. * Palliative care contact information has been provided to patient. * Palliative care will continue to follow up for further clarification of goals of care as patient's clinical course continues to evolve. . Time Spent Total Floor Time (mins): 70 (Total time to include review and summarization of available medical records to include prior ED visits and hospice records, physical exam, goals of care conversation with patient, case discussion with attending, hospice and bedside RN.) >50% Counseling/Coord of Care: Yes Thank you for the opportunity to participate in the care of Mr. Centeno. Attestation To help prompt me to consider important information that might be impacting today's encounter and assessment, information from prior notes written by myself or my colleagues may have been "brought forward" into today's note. My signature on this note, however, is an attestation that I personally performed the exam, history, and/or decision-making noted today, and, unless otherwise indicated, the interactions with patient, family, and staff as well as the review of records all occurred today. I also attest that the listed assessment and stated plan reflect my best clinical judgment today based on the combination of historical information, prior notes, and today's exam/ interactions. When time spent is documented, it refers only to time spent today by the signer, or if indicated, combined time spent today by collaborating physician/nurse practitioner. Mikala Doll October 26, 2017 11:17
--- NOTE | 2017-10-26 12:42 | HHI.CCPN ---
Subjective Remarks/Hospital Course Hospital Course: 72-year-old male who presents with shortness of breath that got much worse today , constant, severe. He is unable to provide any history because he is in severe respiratory distress. A hospice nurse was on scene. Evidently the patient is on hospice for esophageal cancer. He received 30 mg of morphine earlier today. The CODE STATUS was discussed with the patient by ED attending, the patient rescinded his DNR orders as he would want mechanical ventilation if he were to deteriorate further. He was placed on the BiPAP with significant improvement in his oxygenation. subjective: 10/26: Mr. Centeno remains very hypoxic requiring NIPPV and quite dyspneic, tachypneic, unable to come off BiPAP to have even full sentences. Mikala from palliative care met with the patient where he continued to urge for aggressive goals. I met with Mr. Centeno at length. He understands that his esophageal cancer is terminal. He asked about chemotherapy and I reiterated that he was far too deconditioned and weak, as well as with ongoing active infection, to survive or tolerate chemotherapy and this was not an option for him. I asked him what his goals were, specifically, and he stated he wanted to be cured of the pneumonia "so that I don't feel like I'm drowning when I ." I explained that based on recent imaging, it is likely that his esophageal cancer has eroded into the airway, and this is most likely the etiology of his pneumonia, and that is not a fixable problem. IV antibiotics may improve symptoms for a very short time, but with chronic and repeated seeding of the airway from the GI tract, pneumonias would recur and when they do, come back with more resistance than prior times, so this would be a constant levy of dyspnea, respiratory failure, and ICU admissions. We talked about how as long as we were being aggressive with his respiratory failure, we would have to withhold many of his opiate pain medications to support his respiratory function. He states he did not fully grasp the terminal connection between the cancer and his recurrent pneumonias. He continues to reiterate "I just don't want to drown." I expressed that he would not be a good candidate for home hospice, as they would not likely have the support to assist him when he became dyspneic, but that an inpatient hospice center would be staffed appropriately to handle any symptoms he had at any hour of the day or night. I offered that if he would feel more comfortable here in an ICU setting, we could start the process of palliative comfort measures to ensure that we can control his dyspnea prior to transition to the hospice care center, and he states "I would like that, very much." We then discussed code status, which he had recently revoked a DNR in favor of intubation "to treat the pneumonia." He states to me now, "If the pneumonias aren't going to go away, and I'm not going to get better, I don't want to be on life-support." Congruent with his wishes, we will change his code status back to DNR. After my conversation with Mr. Centeno, I talked with his sister, Cyndi. She was with him last night and expressed to me that she was scared, and didn't want him to like last night. Again, I discussed that he really needed to be in an inpatient hospice setting to prevent that from happening. After a full discussion, she agrees with going back to hospice in an inpatient setting, although she asks that he be transferred to the [facility] as it is closer to her and she wants to maximize the time she can spend with him at the end of his life, which I think is completely appropriate. She is going to come see him today. ROS is positive for cough, dyspnea, tachypnea, sputum production. negative for fever, chills. positive for anxiety. remainder negative. Objective Vital Signs Date Time Temp Pulse Resp B/P (MAP) Pulse Ox O2 Delivery O2 Flow Rate FiO2 10/26/17 12:17 100 45 10/26/17 09:46 18 10/26/17 08:00 98.0 94 114/65 (81) 10/26/17 07:00 Bi-Pap 10/26/17 00:00 6.00 Intake and Output 10/26/17 10/26/17 10/26/17 07:59 15:59 23:59 Intake Total 2276 ml Output Total 300 ml Balance 1976 ml Result Diagram: 10/26/17 0916 10/26/17 0126 Other Results Microbiology Date/Time Source Procedure Growth Status 10/26/17 01:00 Urine Random Urine Legionella Antigen - Final PRESUMPTIVE NEGATIVE FOR LEGIONELLA P... Complete 10/26/17 01:00 Urine Random Urine Streptococcus pneumoniae Antigen (M - Final PRESUMPTIVE NEGATIVE FOR STREPTOCOCCU... Complete Imaging Last 24 hours Impressions Chest X-Ray 10/25/17 1830 Signed Impressions: CONCLUSION: 1. Mild bilateral lower lung interstitial prominence without focal infiltrate. 2. [id number] in good position. Objective Remarks GENERAL: Cachectic, anxious in severe respiratory distress on facemask BiPAP SKIN: Focused skin assessment warm and dry. HEAD: Atraumatic. Normocephalic. EYES: Pupils equal and round. No injection or drainage. ENT: Moist mucous membranes NECK: Trachea midline. CARDIOVASCULAR: Regular rate and rhythm. No murmur appreciated. RESPIRATORY: Tachypneic, using accessory muscles and tripoding, diffuse rales GASTROINTESTINAL: Abdomen soft, non-tender, nondistended. MUSCULOSKELETAL: No obvious deformities. NEUROLOGICAL: Awake and alert. No obvious cranial nerve deficits. Moving all extremities. A/P Assessment and Plan Assessment: 62yM with terminal end-stage esophageal cancer and recurrent aspiration pneumonia with associated acute hypoxic respiratory failure. He will not survive his illness, and hospice is appropriate. Congruent with his wishes in our conversation as documented above: 1) We will make the patient DNR per his request. 2) We will consult hospice 3) we will make every attempt to coordinate his moving to the [facility] tomorrow 4) after he takes care of all the documentation, we will start the palliative comfort measures here in an inpatient setting to ensure he has no anxiety, air hunger, dyspnea, pain or other symptoms prior to transitioning to hospice. Acute Hypoxic Respiratory failure Acute dyspnea Anxiety associated with air hunger -Facemask BiPAP for now. oxygen at the request of the patient. -Empiric antibiotic -DuoNeb scheduled and as needed -IV steroids - ativan and morphine as needed for pain, anxiety, air hunger, dyspnea. Esophageal cancer -Palliative care consultation -Supportive care - to hospice tomorrow. Dysphagia -hold tube feeds given likely translocation of GI fluids to the airways. Anemia -Monitor H&H -Transfuse for hemoglobin less than 7 Acute kidney injury -Aggressive IV fluid hydration -Monitor creatinine and electrolyte levels DVT GI prophylaxis -Erich's and SCDs -Lovenox -Pepcid I have spent in excess of 40 of a 70 minute visit in counseling and coordination of care with the patient and patient's family. Please see the above documented discussion for details. Guevara Banegas MD October 26, 2017 12:42
[2017-10-26] MEDS ORDERED: LORazepam 1 MG TAB PEG PRN (12:45)
[2017-10-26] MEDS ORDERED: MORPHINE SULFATE 2 MG/ML SYRINGE IV PUSH PRN (12:45)
[2017-10-26] MEDS: MORPHINE SULFATE 2 MG/ML SYRINGE IV PUSH SCH ×4 (14:00→23:00)
[2017-10-26] MEDS: LORazepam 1 MG TAB PEG SCH ×6 (14:00→23:58)
[2017-10-26] MEDS: VANCOMYCIN INJ 1,250 MG in SODIUM CHLOR 0.9% 250 ML INJ 250 ML IV SCH (17:16)
--- NOTE | 2017-10-26 17:53 | HHI.DS ---
Discharge Summary Admission Date October 25, 2017 at 21:50 Discharge Date: October 27, 2017 Admitting Diagnosis acute resp distress; pulmonary vasc congestion; esophageal CA Brief History 72-year-old male who presents with shortness of breath that got much worse today , constant, severe. He is unable to provide any history because he is in severe respiratory distress. A hospice nurse was on scene. Evidently the patient is on hospice for esophageal cancer. He received 30 mg of morphine earlier today. The CODE STATUS was discussed with the patient by ED attending, the patient rescinded his DNR orders as he would want mechanical ventilation if he were to deteriorate further. He was placed on the BiPAP with significant improvement in his oxygenation. CBC/BMP: 10/26/17 0916 10/26/17 0126 Significant Findings Laboratory Tests Test 10/25/17 19:05 10/25/17 19:55 10/26/17 01:26 10/26/17 03:36 White Blood Count 19.3 TH/MM3 (4.0-11.0) 14.3 TH/MM3 (4.0-11.0) Red Blood Count 3.41 MIL/MM3 (4.50-5.90) 2.72 MIL/MM3 (4.50-5.90) Hemoglobin 10.7 GM/DL (13.0-17.0) 8.4 GM/DL (13.0-17.0) Hematocrit 33.0 % (39.0-51.0) 26.3 % (39.0-51.0) Platelet Count 570 TH/MM3 (150-450) Neutrophils (%) (Auto) 77.7 % (16.0-70.0) 94.8 % (16.0-70.0) Monocytes (%) (Auto) 8.2 % (0.0-8.0) Neutrophils # (Auto) 15.0 TH/MM3 (1.8-7.7) 13.6 TH/MM3 (1.8-7.7) Monocytes # (Auto) 1.6 TH/MM3 (0-0.9) Activated Partial Thromboplast Time 30.7 SEC (24.3-30.1) 35.7 SEC (24.3-30.1) Blood Urea Nitrogen 26 MG/DL (7-18) 28 MG/DL (7-18) Random Glucose 118 MG/DL (74-106) 193 MG/DL (74-106) Total Protein 9.7 GM/DL (6.4-8.2) 8.6 GM/DL (6.4-8.2) Albumin 3.0 GM/DL (3.4-5.0) 2.7 GM/DL (3.4-5.0) Calcium Level 10.9 MG/DL (8.5-10.1) Alkaline Phosphatase 129 U/L (45-117) Estimat Glomerular Filtration Rate 66 ML/MIN (>89) 62 ML/MIN (>89) Troponin I LESS THAN 0.02 NG/ML LESS THAN 0.02 NG/ML Aspartate Amino Transf (AST/SGOT) 14 U/L (15-37) Lymphocytes (%) (Auto) 3.3 % (9.0-44.0) Lymphocytes # (Auto) 0.5 TH/MM3 (1.0-4.8) Lactic Acid Level 2.4 mmol/L (0.4-2.0) Test 10/26/17 09:16 10/26/17 09:26 Hemoglobin 8.5 GM/DL (13.0-17.0) Hematocrit 26.6 % (39.0-51.0) Troponin I LESS THAN 0.02 NG/ML Hospital Course Hospital Course: 72-year-old male who presents with shortness of breath that got much worse today , constant, severe. He is unable to provide any history because he is in severe respiratory distress. A hospice nurse was on scene. Evidently the patient is on hospice for esophageal cancer. He received 30 mg of morphine earlier today. The CODE STATUS was discussed with the patient by ED attending, the patient rescinded his DNR orders as he would want mechanical ventilation if he were to deteriorate further. He was placed on the BiPAP with significant improvement in his oxygenation. subjective: 10/26: Mr. Centeno remains very hypoxic requiring NIPPV and quite dyspneic, tachypneic, unable to come off BiPAP to have even full sentences. Mikala from palliative care met with the patient where he continued to urge for aggressive goals. I met with Mr. Centeno at length. He understands that his esophageal cancer is terminal. He asked about chemotherapy and I reiterated that he was far too deconditioned and weak, as well as with ongoing active infection, to survive or tolerate chemotherapy and this was not an option for him. I asked him what his goals were, specifically, and he stated he wanted to be cured of the pneumonia "so that I don't feel like I'm drowning when I ." I explained that based on recent imaging, it is likely that his esophageal cancer has eroded into the airway, and this is most likely the etiology of his pneumonia, and that is not a fixable problem. IV antibiotics may improve symptoms for a very short time, but with chronic and repeated seeding of the airway from the GI tract, pneumonias would recur and when they do, come back with more resistance than prior times, so this would be a constant levy of dyspnea, respiratory failure, and ICU admissions. We talked about how as long as we were being aggressive with his respiratory failure, we would have to withhold many of his opiate pain medications to support his respiratory function. He states he did not fully grasp the terminal connection between the cancer and his recurrent pneumonias. He continues to reiterate "I just don't want to drown." I expressed that he would not be a good candidate for home hospice, as they would not likely have the support to assist him when he became dyspneic, but that an inpatient hospice center would be staffed appropriately to handle any symptoms he had at any hour of the day or night. I offered that if he would feel more comfortable here in an ICU setting, we could start the process of palliative comfort measures to ensure that we can control his dyspnea prior to transition to the hospice care center, and he states "I would like that, very much." We then discussed code status, which he had recently revoked a DNR in favor of intubation "to treat the pneumonia." He states to me now, "If the pneumonias aren't going to go away, and I'm not going to get better, I don't want to be on life-support." Congruent with his wishes, we will change his code status back to DNR. After my conversation with Mr. Centeno, I talked with his sister, Cyndi. She was with him last night and expressed to me that she was scared, and didn't want him to like last night. Again, I discussed that he really needed to be in an inpatient hospice setting to prevent that from happening. After a full discussion, she agrees with going back to hospice in an inpatient setting, although she asks that he be transferred to the [facility] as it is closer to her and she wants to maximize the time she can spend with him at the end of his life, which I think is completely appropriate. She is going to come see him today Pt Condition on Discharge: Guarded Discharge Disposition: Hospice/Med Facility Discharge Instructions DIET: Follow Instructions for: As Tolerated, No Restrictions Speech Therapy-Diet Recommends: Regular Activities you can perform: Regular-No Restrictions Guevara Banegas MD October 26, 2017 17:53
--- NOTE | 2017-10-26 18:01 | EKG ---
Date Performed: 10/25/2017 Time Performed: 18:34:26 PTAGE: 62 years EKG: SINUS TACHYCARDIA, POSSIBLE ATRIAL FLUTTER MARKED RIGHT AXIS DEVIATION LOW QRS VOLTAGE IN E XTREMITY LEADS ABNORMAL ECG NO PREVIOUS TRACING DOCTOR: Edith Mckeon Interpretating Date/Time 10/26/2017 17:58:11
[2017-10-27] VITALS (13 sets, daily range): BP systolic 97–152; BP diastolic 53–80; PULSE 70–113; RESP 11–22; TEMP 97.8–98.2; O2SAT 92–100
[2017-10-27] MEDS: CHLORHEXIDINE GLUCONATE 2 % 1 PACK (2 CLOTHS) TOP SCH (01:46)
[2017-10-27] MEDS: MORPHINE SULFATE 2 MG/ML SYRINGE IV PUSH SCH ×4 (01:46→12:13)
[2017-10-27] MEDS: LORazepam 1 MG TAB PEG SCH ×7 (01:46→17:38)
[2017-10-27] MEDS: RESP: ALBUTEROL 2.5 MG/IPRATROPIUM 0.5 MG NEB (SCH) INH ×4 (04:00→16:00)
[2017-10-27] MEDS: PIPERACIL-TAZO 4.5 GM PREMIX 100 ML IV SCH ×3 (05:47→17:00)
[2017-10-27] MEDS: predniSONE 20 MG TAB PEG SCH (08:14)
[2017-10-27] MEDS: DOCUSATE SODIUM 50 MG/SENNA 8.6 MG TAB PO SCH (08:15)
[2017-10-27] MEDS: SODIUM CHLORIDE 0.9% FLUSH 10 ML FLUSH IV FLUSH SCH (09:00)
[2017-10-27] MEDS: VANCOMYCIN INJ 1,250 MG in SODIUM CHLOR 0.9% 250 ML INJ 250 ML IV SCH (13:29)
[2017-10-27] MEDS ORDERED: MORPHINE SULFATE 4 MG/ML INJ IV PUSH PRN (13:30)
[2017-10-27] MEDS: MORPHINE SULFATE 4 MG/ML INJ IV PUSH SCH ×2 (13:32→17:38)
[2017-10-28] MEDS ORDERED: PHARMACY ORDERED LAB ONE (06:45)
== END 2017-10-27 18:00 | disposition hospice, inpatient (51) | DRG 189 ==
LOC: NEPC 18:22 → NEDA 21:50 → HIMW 10-26 00:15
PROVIDERS: ADMIT Internal Medicine Critical Care Medicine; ATTEND Internal Medicine Critical Care Medicine
PROC: 5A09457 Assistance with Respiratory Ventilation, 24-96 Consecutive Hours, Continuous Positive Airway Pressure (ICD-10-PCS; principal; 2017-10-25)
DX: J96.01 Acute respiratory failure with hypoxia (principal); J69.0 Pneumonitis due to inhalation of food and vomit; R64 Cachexia; N17.9 Acute kidney failure, unspecified; J81.1 Chronic pulmonary edema; R13.10 Dysphagia, unspecified; C15.9 Malignant neoplasm of esophagus, unspecified; Z51.5 Encounter for palliative care; R00.0 Tachycardia, unspecified; D64.9 Anemia, unspecified; R59.9 Enlarged lymph nodes, unspecified; F41.9 Anxiety disorder, unspecified; K59.00 Constipation, unspecified; Z68.21 Body mass index [BMI] 21.0-21.9, adult; Z92.3 Personal history of irradiation; Z79.899 Other long term (current) drug therapy; F10.20 Alcohol dependence, uncomplicated
CPT/HCPCS: 71045; 71275; 80053; 82948; 83605; 83735; 83880; 84100; 84484; 85014; 85018; 85025; 85610; 85730; 87040; 87086; 87449; 93005; 94002; 94003; 94640; 94664; 96365; 96375; J0153; J0456; J0692; J1650; J2270; J2543; J2930; J3370; J7030; J7040; J7050; J7512; Q9967